=== PATIENT | female | born 1985 | race Caucasian/White ===

== ENCOUNTER 2018-06-28 14:55 | Emergency (ER) | payer SELFPAY | END 2018-06-28 16:59 | disposition home or self-care (01) | LOC: ERS 14:55 | DX: T67.5XXA Heat exhaustion, unspecified, initial encounter (principal); E86.0 Dehydration; F15.10 Other stimulant abuse, uncomplicated; G40.909 Epilepsy, unspecified, not intractable, without status epilepticus | CPT/HCPCS: 93005; 96360; 96361 ==

== ENCOUNTER 2018-07-07 14:49 | Emergency (ER) | payer SELFPAY ==
[2018-07-07] MEDS ORDERED: traMADol HCl 50 MG TAB ONE (15:20)
[2018-07-07] MEDS ORDERED: Acetaminophen 500 MG TAB ONE (15:20)
[2018-07-07] MEDS ORDERED: Ondansetron ODT 4 MG TAB ONE (15:20)
[2018-07-07] MEDS ORDERED: diphenhydrAMINE 50 MG CAP ONE (15:22)
[2018-07-07] MEDS ORDERED: Amoxicillin/Potassium Clav 875 MG TAB ONE (15:22)
[2018-07-07 15:58] LABS: #Basophils 0.1 thou/uL (0.0-0.2); #Eosinphils 0.2 thou/uL (0.0-0.7); #Lymphocytes 2.8 thou/uL (1.20-3.40); #Monocytes 0.9 thou/uL (0.11-0.59); #Neutrophils 7.9 thou/uL (1.40-6.50); %Eosinophils 1.9 % (0.0-10.0); %Lymphocytes 23.2 % (21.0-51.0); %Monocytes 7.5 % (0.0-10.0); %Neutrophils 66.4 % (42.0-75.0); Hemoglobin 15.2 g/dL (12.0-16.0); Mean Corpuscular HGB CONC 30.9 g/dL (32.0-36.0); Mean Corpuscular Hemoglobin 28.7 pg (27.0-31.0); Mean Corpuscular Volume 92.9 fL (78.0-98.0); Mean Platelet Volume 6.7 fL (7.4-10.4); Platelet Count 329 thou/uL (130-400); RBC Distribution Width 13.6 % (11.5-14.5); Red Blood Cell (RBC) Count 5.31 mill/uL (4.20-5.40); White Blood Cell (WBC) Count 11.9 thou/uL (4.8-10.8)
[2018-07-07] MEDS ORDERED: Ciprofloxacin HCL/Dexameth Otic Drops 7.5 ml Bottle ONE ×2 (16:03→16:04)
[2018-07-07 16:18] LABS: Anion Gap 10 mmol/L (10-20); BUN (Urea Nitrogen) 8 mg/dL (7.0-18.7); Calc. Creatinine Clearance 0 mL/min (70-130); Calcium 9.7 mg/dL (7.8-10.44); Carbon Dioxide 26 mmol/L (22-29); Chloride 105 mmol/L (98-107); Estimated GFR-MDRD 88; Glucose 98 mg/dL (70-105); Potassium 4.1 mmol/L (3.5-5.1); Sodium 137 mmol/L (136-145)
--- NOTE | 2018-07-07 16:35 | CT ---
CT OF HEAD NONCONTRAST: INDICATION: Right side otalgia/otitis. COMPARISON: No prior imaging comparison. FINDINGS: The ventricular system is normal in size. There is no acute intracranial hemorrhage, mass effect, or midline shift. The calvarium is intact. There is asymmetric soft tissue thickening and increased density of the right external auditory canal . There is no evidence of fluid level of the mastoid segment of the right temporal bone. No osseous destruction of the mastoid segment of the right temporal bone. There is no pneumocephalus. The gary ged paranasal sinuses reveal no acute fluid level. 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 There is soft tissue prominence of the right tympanic membrane and partial opacification of the right middle ear cavity. IMPRESSION: 1. Findings which are consistent with right side otitis. There is no associated mastoiditis. 2. No acute intracranial pathology identified. POS: [facility]
== END 2018-07-07 16:15 | disposition home or self-care (01) ==
LOC: ERS 14:49
DX: H66.91 Otitis media, unspecified, right ear (principal); H60.91 Unspecified otitis externa, right ear; G40.909 Epilepsy, unspecified, not intractable, without status epilepticus; F41.9 Anxiety disorder, unspecified
CPT/HCPCS: 36415; 70450; 80048; 85025; 99283; Q0162